=== PATIENT | female | born 1965 | race Hispanic/Latino ===

== ENCOUNTER 2016-12-21 20:42 | Observation (INO) | payer MEDICARE, OTHER ==
[2016-12-21] MEDS ORDERED: Sodium Chloride 0.9% 1,000 ML IV STA (22:05)
--- NOTE | 2016-12-21 22:10 | ED PDOC ---
HPI: Chest Pain Time Seen by Provider: 12/21/16 21:49 Chief Complaint (Nursing): Chest Pain Chief Complaint (Provider): chest pain History Per: Patient History/Exam Limitations: no limitations Onset/Duration Of Symptoms: Days (1) Current Symptoms Are (Timing): Still Present Quality: Pressure, "Pain" Associated Symptoms: Dyspnea Additional History Per: Patient Additional Complaint(s): 51 y/o female presents with intermittent left-sided chest pain x 1 day. Patient notes pain to radiate behind left shoulder, with associated shortness of breath. Symptoms unrelieved with albuterol nebulizer at home. Patient also notes dizziness since last night; states started after an argument with her son. Patient describes dizziness as "room spinning", worse with movement of head. Denies fever, headache, extremity numbness/weakness, vision changes, palpitations, abdominal pain, leg pain/swelling, recent travel. Past Medical History Reviewed: Historical Data, Nursing Documentation, Vital Signs Vital Signs: Last Vital Signs Temp 98.5 F 12/21/16 21:02 Pulse 61 12/21/16 21:02 Resp 16 12/21/16 21:02 BP 131/74 12/21/16 21:02 Pulse Ox 99 12/22/16 04:20 - Medical History PMH: Anxiety, Arthritis, Asthma, Back Problems, Gastritis, HTN, Hypercholesterolemia Denies: Chronic Kidney Disease - Surgical History Surgical History: Back Surgery, Cholecystectomy - Family History Family History: States: Hypertension - Home Medications Home Medications: Ambulatory Orders Medication Instructions Recorded Aripiprazole [Abilify] 20 mg PO DAILY 11/14/14 Gabapentin [Gabapentin] 300 mg PO TID 11/14/14 LORazepam [Ativan] 0.5 mg PO BID 11/14/14 Losartan/Hydrochlorothiazide 12.5 mg PO DAILY 11/14/14 [Losartan Potassium-Hydrochlorothiazide 12.5 M] Omeprazole [Omeprazole] 40 mg PO DAILY 11/14/14 Sertraline Hydrochloride 100 mg PO BID 11/14/14 [Sertraline Hydrochloride] Ondansetron ODT [Zofran ODT] 8 mg PO Q6 PRN #10 odt 11/15/14 Azithromycin [Zithromax Z-Shukri] 250 mg PO DAILY #1 tab 05/22/15 Prednisone 3 tab-cap PO QAM #15 tab 05/22/15 Promethazine/Phenyleph/Codeine 2 tsp PO Q6 PRN #0 syr 05/22/15 [Promethazine Vc W/ Codeine 120 ml] Albuterol 0.083% [Albuterol 0.083% 2.5 mg IH Q8 #10 neb 07/08/15 Inhal Peggy (2.5 mg/3 ml) UD] Azithromycin [Zithromax] 250 mg PO DAILY #6 cap 07/08/15 Codeine Phos/Phenyleph HCl/P 5 ml PO Q6H #100 syr 07/08/15 [Phenergan Vc W/Codeine 120 ml] Amoxicillin/Clavulanate [Augmentin 1 tab PO BID #14 tab 02/25/16 875 MG-125 MG] traMADol [Ultram] 50 mg PO Q6 #16 tab 02/25/16 Ciprofloxacin [Cipro] 500 mg PO BID #20 tab 05/21/16 metroNIDAZOLE [Flagyl] 500 mg PO Q8 #30 tab 05/21/16 Polymyxin/Trimethoprim Sulfate 1 drop XX Q6H 10 Days 10/10/16 [Polytrim Ophth Soln] Benzonatate [Tessalon Perle] 100 mg PO BID #15 capsule 10/25/16 Ibuprofen [Motrin Tab] 600 mg PO Q6 #30 tab 10/25/16 predniSONE [predniSONE Tab] 60 mg PO DAILY #9 tab 10/25/16 - Allergies Allergies/Adverse Reactions: Allergies Allergy/AdvReac Type Severity Reaction Status Date / Time latex Allergy RASH Verified 12/21/16 21:02 REEMA Risk Score for UA/NSTEMI - REEMA Risk Score Age > 64: NO 3 or more CAD Risk Factors: NO Known CAD (Stenosis greater than 50%): NO Aspirin use in past 7 days: NO Severe Angina: NO EKG ST changes greater than 0.5mm: NO Positive Cardiac Marker: NO REEMA Score: 0 Risk %: 5% Wells Criteria for PE - Wells Criteria for Pulmonary Embolism Clinical Signs and Symptoms of DVT: No P.E is #1 Diagnosis, or Equally Likely: No Heart Rate >100: No Immobilization at least 3 days;Surgery previous 4 weeks: No Previous, objectively diagnosed PE or DVT: No Hemoptysis: No Malignancy w/treatment within 6 months, or palliative: No Total Score: 0 Review of Systems ROS Statement: Except As Marked, All Systems Reviewed And Found Negative Cardiovascular: Positive for: Chest Pain Respiratory: Positive for: Shortness of Breath Neurological: Positive for: Dizziness Physical Exam - Reviewed Nursing Documentation Reviewed: Yes Vital Signs Reviewed: Yes - Physical Exam Appears: Positive for: Well, Non-toxic, No Acute Distress Head Exam: Positive for: ATRAUMATIC, NORMAL INSPECTION, NORMOCEPHALIC Skin: Positive for: Normal Color Eye Exam: Positive for: Normal appearance, EOMI, PERRL, Nystagmus ENT: Positive for: Normal ENT Inspection Cardiovascular/Chest: Positive for: Regular Rate, Rhythm Respiratory: Positive for: Normal Breath Sounds Gastrointestinal/Abdominal: Positive for: Normal Exam Back: Positive for: Normal Inspection Extremity: Positive for: Normal ROM Neurologic/Psych: Positive for: Alert, Oriented. Negative for: Motor/Sensory Deficits - Laboratory Results Result Diagrams: 12/21/16 01:04 12/21/16 01:04 - ECG ECG: Positive for: Viewed By Me (reviewed by ED attending) ECG Rhythm: Positive for: Sinus Bradycardia (59bpm) O2 Sat by Pulse Oximetry: 99 - Progress ED Course And Treament: EXAM: CT Head Without Intravenous Contrast. CLINICAL HISTORY: 51 years old, female; Signs and symptoms; Dizziness TECHNIQUE: Axial computed tomography images of the head/brain without intravenous contrast. This CT exam was performed using one or more of the following dose reduction techniques: automated exposure control, adjustment of the mA and/or kV according to patient size, and/or use of iterative reconstruction technique. Coronal and sagittal reformatted images were created and reviewed. COMPARISON: CT - HEAD W/O CONTRAST 02/25/2016 12:39:55 AM FINDINGS: Brain: No intracranial hemorrhage. No mass. No definite edema. Ventricles: No hydrocephalus. Bones/joints: No acute fracture. Soft tissues: Unremarkable. Sinuses: No acute sinusitis. Mastoid air cells: No mastoid effusion. Orbits: Unremarkable as visualized. IMPRESSION: 1. No acute intracranial abnormality. 2. Incidental/non-acute findings are described above. EXAM: XR Chest, 2 Views. CLINICAL HISTORY: 51 years old, female; Pain; Chest pain TECHNIQUE: Frontal and lateral views of the chest. COMPARISON: CR - CHEST PORTABLE 02/24/2016 11:30:18 PM FINDINGS: Lungs: No consolidation. Questionable nodule vs confluence RIGHT lung base. Pleural space: No pleural effusion. No pneumothorax. Heart: No cardiomegaly. Mediastinum: Unremarkable. Bones/joints: No acute fracture. IMPRESSION: 1. Questionable pulmonary nodule. Recommend CT. 2. Incidental/non-acute findings are described above. Case discussed with ED attending Dr. Perez; will place in tele observation for CP r/out ACS. Case discussed with Kt Zhao APARTMENT COORDINATOR for admission. Disposition - Clinical Impression Clinical Impression: Chest pain - Patient ED Disposition Is Patient to be Admitted: Yes - Disposition Disposition Time: 04:20 Condition: FAIR - Pt Status Changed To: Hospital Disposition Of: Observation
--- NOTE | 2016-12-21 22:44 | CT ---
EXAM: CT Head Without Intravenous Contrast. CLINICAL HISTORY: 51 years old, female; Signs and symptoms; Dizziness TECHNIQUE: Axial computed tomography images of the head/brain without intravenous contrast. This CT exam was performed using one or more of the following dose reduction techniques: automated exposure control, adjustment of the mA and/or kV according to patient size, and/or use of iterative reconstruction technique. Coronal and sagittal reformatted images were created and reviewed. COMPARISON: CT - HEAD W/O CONTRAST 02/25/2016 12:39:55 AM FINDINGS: Brain: No intracranial hemorrhage. No mass. No definite edema. Ventricles: No hydrocephalus. Bones/joints: No acute fracture. Soft tissues: Unremarkable. Sinuses: No acute sinusitis. Mastoid air cells: No mastoid effusion. Orbits: Unremarkable as visualized. IMPRESSION: 1. No acute intracranial abnormality. 2. Incidental/non-acute findings are described above.
[2016-12-22 01:10] LABS: BASO % 0.6 % (0.0-2.0); EOS # 0.1 K/uL (0.0-0.7); EOS % 1.7 % (0.0-4.0); HEMATOCRIT 41.8 % (34.0-47.0); LYMPH # 2.6 K/uL (1.0-4.3); LYMPH % 39.3 % (20.0-40.0); MEAN CORPUSCULAR HEMOGLOBIN 30.9 pg (27.0-31.0); MEAN CORPUSCULAR HGB CONC 32.9 g/dL (33.0-37.0); MEAN PLATELET VOLUME 7.4 fl (7.2-11.7); MONO # 0.4 K/uL (0.0-0.8); NEUT # 3.4 K/uL (1.8-7.0); NEUT % 52.4 % (50.0-75.0); WHITE BLOOD COUNT 6.6 K/uL (4.8-10.8)
[2016-12-22 01:17] LABS: ALB/GLOB RATIO 1.1 (1.0-2.1); ALKALINE PHOSPHATASE 95 U/L (38-126); ALT/SGPT 32 U/L (9-52); AST/SGOT 39 U/L (14-36); BILIRUBIN,TOTAL 0.7 mg/dl (0.2-1.3); BLOOD UREA NITROGEN 10 mg/dl (7-17); CALCIUM 9.7 mg/dL (8.4-10.2); CARBON DIOXIDE 27 mmol/L (22-30); CHLORIDE 102 mmol/L (98-107); GFR AFRICAN-AMERICAN > 60; GLUCOSE,RANDOM 114 mg/dL (65-105); POTASSIUM 3.8 MMOL/L (3.6-5.0); SODIUM 143 mmol/l (132-148); TOTAL PROTEIN 8.2 G/DL (6.3-8.2)
--- NOTE | 2016-12-22 02:00 | RAD ---
EXAM: XR Chest, 2 Views. CLINICAL HISTORY: 51 years old, female; Pain; Chest pain TECHNIQUE: Frontal and lateral views of the chest. COMPARISON: CR - CHEST PORTABLE 02/24/2016 11:30:18 PM FINDINGS: Lungs: No consolidation. Questionable nodule vs confluence RIGHT lung base. Pleural space: No pleural effusion. No pneumothorax. Heart: No cardiomegaly. Mediastinum: Unremarkable. Bones/joints: No acute fracture. IMPRESSION: 1. Questionable pulmonary nodule. Recommend CT. 2. Incidental/non-acute findings are described above.
--- NOTE | 2016-12-22 07:07 | CP.PCM.HP ---
History of Present Illness - History of Present Illness History of Present Illness: pt presents for 3 days of cp, at present is pain free. no cp, dyspnea palpitations. pt has h/o htn. no dm2. 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 bw nad imaging noted. cardio consult pending. ekg reviewed. Present on Admission - Present on Admission Any Indicators Present on Admission: No Review of Systems - Cardiovascular Cardiovascular: As Per HPI, Chest Pain Past Patient History - Past Social History Smoking Status: Never Smoked - CARDIAC Hx Hypercholesterolemia: Yes Hx Hypertension: Yes - PULMONARY Hx Asthma: Yes - NEUROLOGICAL Hx Neurological Disorder: No - HEENT Hx HEENT Problems: No - RENAL Hx Chronic Kidney Disease: No - ENDOCRINE/METABOLIC Hx Endocrine Disorders: No - HEMATOLOGICAL/ONCOLOGICAL Hx Blood Disorders: No - INTEGUMENTARY Hx Dermatological Problems: No - MUSCULOSKELETAL/RHEUMATOLOGICAL Hx Arthritis: Yes - GASTROINTESTINAL Hx Gastritis: Yes - GENITOURINARY/GYNECOLOGICAL Hx Genitourinary Disorders: No - PSYCHIATRIC Hx Anxiety: Yes Hx Substance Use: No - SURGICAL HISTORY Hx Cholecystectomy: Yes - ANESTHESIA Hx Anesthesia: Yes Meds Home Medications: Home Medication List Medication Instructions Recorded Confirmed Type Aspirin [Aspirin Chewable] 81 mg PO DAILY #30 chew 12/22/16 Rx Allergies/Adverse Reactions: Allergies Allergy/AdvReac Type Severity Reaction Status Date / Time latex Allergy RASH Verified 12/21/16 21:02 Physical Exam - Constitutional Appears: Well, Non-toxic, No Acute Distress - Head Exam Head Exam: ATRAUMATIC, NORMAL INSPECTION, NORMOCEPHALIC - Eye Exam Eye Exam: EOMI, Normal appearance, PERRL Pupil Exam: NORMAL ACCOMODATION, PERRL - ENT Exam ENT Exam: Mucous Membranes Moist, Normal Exam - Neck Exam Neck exam: Positive for: Normal Inspection - Respiratory Exam Respiratory Exam: Clear to Auscultation Bilateral, NORMAL BREATHING PATTERN - Cardiovascular Exam Cardiovascular Exam: REGULAR RHYTHM, RRR, +S1, +S2 - GI/Abdominal Exam GI & Abdominal Exam: Normal Bowel Sounds, Soft. absent: Tenderness - Extremities Exam Extremities exam: Positive for: full ROM, normal capillary refill, normal inspection, pedal pulses present - Back Exam Back exam: NORMAL INSPECTION - Neurological Exam Neurological exam: Alert, CN II-XII Intact, Normal Gait, Oriented x3, Reflexes Normal - Psychiatric Exam Psychiatric exam: Normal Affect, Normal Mood - Skin Skin Exam: Dry, Intact, Normal Color, Warm Results - Vital Signs Recent Vital Signs: Last Vital Signs Temp 98.5 F 12/21/16 21:02 Pulse 61 12/21/16 21:02 Resp 16 12/21/16 21:02 BP 131/74 12/21/16 21:02 Pulse Ox 99 12/22/16 06:02 - Labs Result Diagrams: 12/22/16 07:00 12/22/16 08:21 Assessment & Plan (1) Chest pain Assessment and Plan: [facility] cardio asa cleared bybarbie waldrop as of 929 Status: Acute (2) DVT prophylaxis Assessment and Plan: cd and ae hose lovenox if admitted over 24h Status: Acute Decision To Admit - Pt Status Changed To: Hospital Disposition Of: Observation - . Bed Request Type: Telemetry Admitting Physician: Cait Benitez
[2016-12-22 08:44] LABS: BASO % 0.5 % (0.0-2.0); EOS # 0.1 K/uL (0.0-0.7); EOS % 1.9 % (0.0-4.0); HEMATOCRIT 39.8 % (34.0-47.0); LYMPH # 2.2 K/uL (1.0-4.3); LYMPH % 38.2 % (20.0-40.0); MEAN CELL VOLUME 93.8 fl (81.0-99.0); MEAN CORPUSCULAR HEMOGLOBIN 30.9 pg (27.0-31.0); MEAN CORPUSCULAR HGB CONC 32.9 g/dL (33.0-37.0); MEAN PLATELET VOLUME 7.4 fl (7.2-11.7); MONO # 0.4 K/uL (0.0-0.8); MONO % 6.6 % (0.0-10.0); NEUT % 52.8 % (50.0-75.0); RED CELL DISTRIBUTION WIDTH 13.8 % (11.5-14.5); WHITE BLOOD COUNT 5.7 K/uL (4.8-10.8)
--- NOTE | 2016-12-22 08:47 | CP.PCM.CON ---
History of Present Illness - History of Present Illness History of Present Illness: 51 y/o female presents with intermittent left-sided chest pain x 1 day. Patient notes pain to radiate behind left shoulder, with associated shortness of breath. Symptoms unrelieved with albuterol nebulizer at home. The patient has had this pain and shortness of breath for 3 weeks. The pain comes it is constant and not made worse or better with exercise or movement Claims pain comes on more when she is upset. EKG: NSR Troponin: neg Past Patient History - Past Social History Smoking Status: Never Smoked - CARDIAC Hx Hypercholesterolemia: Yes Hx Hypertension: Yes - PULMONARY Hx Asthma: Yes - NEUROLOGICAL Hx Neurological Disorder: No - HEENT Hx HEENT Problems: No - RENAL Hx Chronic Kidney Disease: No - ENDOCRINE/METABOLIC Hx Endocrine Disorders: No - HEMATOLOGICAL/ONCOLOGICAL Hx Blood Disorders: No - INTEGUMENTARY Hx Dermatological Problems: No - MUSCULOSKELETAL/RHEUMATOLOGICAL Hx Arthritis: Yes - GASTROINTESTINAL Hx Gastritis: Yes - GENITOURINARY/GYNECOLOGICAL Hx Genitourinary Disorders: No - PSYCHIATRIC Hx Anxiety: Yes Hx Substance Use: No - SURGICAL HISTORY Hx Cholecystectomy: Yes - ANESTHESIA Hx Anesthesia: Yes Meds Home Medications: Home Medication List Medication Instructions Recorded Confirmed Type Aspirin [Aspirin Chewable] 81 mg PO DAILY #30 chew 12/22/16 Rx Allergies/Adverse Reactions: Allergies Allergy/AdvReac Type Severity Reaction Status Date / Time latex Allergy RASH Verified 12/21/16 21:02 - Medications Medications: Current Medications Aspirin (Aspirin Chewable) 81 mg PO DAILY JASON Results - Vital Signs Recent Vital Signs: Last Vital Signs Temp 98.5 F 12/21/16 21:02 Pulse 61 12/22/16 07:59 Resp 21 12/22/16 07:59 BP 135/89 12/22/16 07:59 Pulse Ox 98 12/22/16 07:59 - Labs Result Diagrams: 12/22/16 07:00 12/22/16 08:21 Assessment & Plan (1) Chest pain Assessment and Plan: The patient is asymptomatic at this point. The pain that she has of the chest appears to be noncardiac. She may be discharged at any time. Status: Resolved (2) Bronchitis Status: Acute
[2016-12-22 09:19] LABS: ALKALINE PHOSPHATASE 77 U/L (38-126); ALT/SGPT 34 U/L (9-52); AST/SGOT 27 U/L (14-36); BILIRUBIN,TOTAL 0.8 mg/dl (0.2-1.3); BLOOD UREA NITROGEN 9 mg/dl (7-17); CALCIUM 9.1 mg/dL (8.4-10.2); CARBON DIOXIDE 22 mmol/L (22-30); CHLORIDE 109 mmol/L (98-107); GFR AFRICAN-AMERICAN > 60; GLUCOSE,RANDOM 91 mg/dL (65-105); POTASSIUM 3.9 MMOL/L (3.6-5.0); SODIUM 144 mmol/l (132-148); TOTAL PROTEIN 7.2 G/DL (6.3-8.2)
--- NOTE | 2016-12-22 10:20 | CP.PCM.DIS ---
Provider - Provider Date of Admission: 12/22/16 04:15 Attending physician: Cait Benitez MD Time Spent in preparation of Discharge (in minutes): 15 Hospital Course - Lab Results Lab Results: Most Recent Lab Values WBC 5.7 K/uL (4.8-10.8) 12/22/16 07:00 RBC 4.25 Mil/uL (3.80-5.20) 12/22/16 07:00 Hgb 13.1 g/dL (12.0-16.0) 12/22/16 07:00 Hct 39.8 % (34.0-47.0) 12/22/16 07:00 MCV 93.8 fl (81.0-99.0) 12/22/16 07:00 MCH 30.9 pg (27.0-31.0) 12/22/16 07:00 MCHC 32.9 g/dL (33.0-37.0) L 12/22/16 07:00 RDW 13.8 % (11.5-14.5) 12/22/16 07:00 Plt Count 232 K/uL (130-400) 12/22/16 07:00 MPV 7.4 fl (7.2-11.7) 12/22/16 07:00 Neut % (Auto) 52.8 % (50.0-75.0) 12/22/16 07:00 Lymph % (Auto) 38.2 % (20.0-40.0) 12/22/16 07:00 [place] % (Auto) 6.6 % (0.0-10.0) 12/22/16 07:00 Eos % (Auto) 1.9 % (0.0-4.0) 12/22/16 07:00 Baso % (Auto) 0.5 % (0.0-2.0) 12/22/16 07:00 Neut # 3.0 K/uL (1.8-7.0) 12/22/16 07:00 Lymph # 2.2 K/uL (1.0-4.3) 12/22/16 07:00 [place] # 0.4 K/uL (0.0-0.8) 12/22/16 07:00 Eos # 0.1 K/uL (0.0-0.7) 12/22/16 07:00 Baso # 0.0 K/uL (0.0-0.2) 12/22/16 07:00 Sodium 144 mmol/l (132-148) 12/22/16 08:21 Potassium 3.9 MMOL/L (3.6-5.0) 12/22/16 08:21 Chloride 109 mmol/L (98-107) H 12/22/16 08:21 Carbon Dioxide 22 mmol/L (22-30) 12/22/16 08:21 Anion Gap 17 (10-20) 12/22/16 08:21 BUN 9 mg/dl (7-17) 12/22/16 08:21 Creatinine 0.5 mg/dL (0.7-1.2) L 12/22/16 08:21 Est GFR ( Amer) > 60 12/22/16 08:21 Est GFR (Non-Af Amer) > 60 12/22/16 08:21 Random Glucose 91 mg/dL (65-105) 12/22/16 08:21 Calcium 9.1 mg/dL (8.4-10.2) 12/22/16 08:21 Total Bilirubin 0.8 mg/dl (0.2-1.3) 12/22/16 08:21 AST 27 U/L (14-36) 12/22/16 08:21 ALT 34 U/L (9-52) 12/22/16 08:21 Alkaline Phosphatase 77 U/L (38-126) 12/22/16 08:21 Troponin I < 0.0120 ng/mL (0.00-0.120) 12/22/16 09:13 Total Protein 7.2 G/DL (6.3-8.2) 12/22/16 08:21 Albumin 3.7 g/dL (3.5-5.0) 12/22/16 08:21 Globulin 3.5 gm/dL (2.2-3.9) 12/22/16 08:21 Albumin/Globulin Ratio 1.0 (1.0-2.1) 12/22/16 08:21 Discharge Exam - Head Exam Head Exam: ATRAUMATIC, NORMAL INSPECTION, NORMOCEPHALIC Discharge Plan - Discharge Medications Prescriptions: Aspirin [Aspirin Chewable] 81 mg PO DAILY #30 chew - Follow Up Plan Condition: FAIR Disposition: HOME/ ROUTINE Additional Instructions: per rn cleared by cardio pt in no pain/distress/dyspnea. trops negative f/u pmd 1-2 days, rted prn, meds er med rec, asa daily final dx-cp
[2016-12-22 10:53] VITALS: BP 139/66; PULSE 68; RESP 18; TEMP 98.4; O2SAT 97
== END 2016-12-22 11:04 | disposition home or self-care (01) ==
LOC: H.ER 20:42 → H.ERHOLD 12-22 04:15
PROVIDERS: ADMIT Family Medicine; ATTEND Family Medicine
DX: R07.9 Chest pain, unspecified (principal); E78.00 Pure hypercholesterolemia, unspecified; I10 Essential (primary) hypertension; K29.70 Gastritis, unspecified, without bleeding; J45.909 Unspecified asthma, uncomplicated; M19.90 Unspecified osteoarthritis, unspecified site; F41.9 Anxiety disorder, unspecified; Z91.040 Latex allergy status
CPT/HCPCS: 36415; 70450; 71020; 80053; 81025; 84484; 85025; 96360; 99282; G0378; J7040

== ENCOUNTER 2017-01-10 13:42 | Emergency (ER) | payer MEDICARE, OTHER ==
[2017-01-10 13:47] VITALS: TEMP 96.9
[2017-01-10] MEDS ORDERED: Sodium Chloride 0.9% 1,000 ML IV STA (15:05)
[2017-01-10 15:25] LABS: BASO % 0.2 % (0.0-2.0); EOS % 0.2 % (0.0-4.0); HEMATOCRIT 47.4 % (34.0-47.0); LYMPH # 0.9 K/uL (1.0-4.3); LYMPH % 6.7 % (20.0-40.0); MEAN CELL VOLUME 93.5 fl (81.0-99.0); MEAN CORPUSCULAR HEMOGLOBIN 30.8 pg (27.0-31.0); MEAN PLATELET VOLUME 7.4 fl (7.2-11.7); MONO # 0.7 K/uL (0.0-0.8); MONO % 4.8 % (0.0-10.0); NEUT # 12.2 K/uL (1.8-7.0); NEUT % 88.1 % (50.0-75.0); PLATELET COUNT 303 K/uL (130-400); RED CELL DISTRIBUTION WIDTH 13.2 % (11.5-14.5); WHITE BLOOD COUNT 13.8 K/uL (4.8-10.8)
[2017-01-10 15:35] LABS: ALKALINE PHOSPHATASE 131 U/L (38-126); ALT/SGPT 35 U/L (9-52); AST/SGOT 35 U/L (14-36); BILIRUBIN,TOTAL 0.7 mg/dl (0.2-1.3); BLOOD UREA NITROGEN 12 mg/dl (7-17); CALCIUM 10.4 mg/dL (8.4-10.2); CARBON DIOXIDE 21 mmol/L (22-30); CHLORIDE 106 mmol/L (98-107); GFR AFRICAN-AMERICAN > 60; GLUCOSE,RANDOM 120 mg/dL (65-105); LIPASE 147 U/L (23-300); POTASSIUM 3.6 MMOL/L (3.6-5.0); SODIUM 147 mmol/l (132-148); TOTAL PROTEIN 9.3 G/DL (6.3-8.2)
[2017-01-10 15:47] LABS: NEUTROPHIL 80 % (42-75); TOTAL CELLS COUNTED 100
--- NOTE | 2017-01-10 16:16 | ED PDOC ---
HPI: General Adult Time Seen by Provider: 01/10/17 14:26 Chief Complaint (Nursing): Abdominal Pain Chief Complaint (Provider): Abdominal Pain History Per: Patient, Family Additional Complaint(s): Pt. states earlier this afternoon she developed epigastric pain and developed nausea and felt very weak. As per family pt. looked pale and while waiting in ED room she developed multiple episodes of non-bloody watery diarrhea. Denies chest pain, SOB, fever, sick contacts, recent travel, vomiting, hematemesis, melena, hematochezia, BRBPR. Past Medical History Reviewed: Historical Data, Nursing Documentation, Vital Signs Vital Signs: Last Vital Signs Temp 96.9 F L 01/10/17 13:44 Pulse 77 01/10/17 17:22 Resp 18 01/10/17 13:44 BP 115/78 01/10/17 13:44 Pulse Ox 99 01/10/17 17:22 - Medical History PMH: Anxiety, Arthritis, Asthma, Back Problems, Gastritis, HTN, Hypercholesterolemia Denies: Chronic Kidney Disease - Surgical History Surgical History: Back Surgery, Cholecystectomy - Family History Family History: States: No Known Family Hx, Hypertension - Home Medications Home Medications: Ambulatory Orders Medication Instructions Recorded Aripiprazole [Abilify] 20 mg PO DAILY 11/14/14 Gabapentin 300 mg PO TID 11/14/14 LORazepam [Ativan] 0.5 mg PO BID 11/14/14 Losartan/Hydrochlorothiazide 12.5 mg PO DAILY 11/14/14 [Losartan-Hctz 50-12.5 mg Tab] Omeprazole 40 mg PO DAILY 11/14/14 Sertraline Hydrochloride 100 mg PO BID 11/14/14 Ondansetron ODT [Zofran ODT] 8 mg PO Q6 PRN #10 odt 11/15/14 Azithromycin [Zithromax] 250 mg PO DAILY #1 tab 05/22/15 Prednisone 3 tab-cap PO QAM #15 tab 05/22/15 Promethazine/Phenyleph/Codeine 2 tsp PO Q6 PRN #0 syr 05/22/15 [Promethazine Vc-Codeine Syrup] Albuterol 0.083% [Albuterol 0.083% 2.5 mg IH Q8 #10 neb 07/08/15 Inhal Peggy (2.5 mg/3 ml) UD] Azithromycin [Zithromax] 250 mg PO DAILY #6 cap 07/08/15 Codeine Phos/Phenyleph HCl/P 5 ml PO Q6H #100 syr 07/08/15 [Phenergan Vc W/Codeine 120 ml] Amoxicillin/Clavulanate [Augmentin 1 tab PO BID #14 tab 02/25/16 875 MG-125 MG Tab] traMADol [Ultram] 50 mg PO Q6 #16 tab 02/25/16 Ciprofloxacin [Cipro] 500 mg PO BID #20 tab 05/21/16 metroNIDAZOLE [Flagyl] 500 mg PO Q8 #30 tab 05/21/16 Polymyxin/Trimethoprim Sulfate 1 drop XX Q6H 10 Days 10/10/16 [Polytrim Ophth Soln] Benzonatate [Tessalon Perle] 100 mg PO BID #15 capsule 10/25/16 Ibuprofen [Motrin Tab] 600 mg PO Q6 #30 tab 10/25/16 predniSONE [predniSONE Tab] 60 mg PO DAILY #9 tab 10/25/16 Aspirin [Aspirin Chewable] 81 mg PO DAILY #30 chew 12/22/16 Dicyclomine [Bentyl] 20 mg PO Q8 PRN #30 tab 01/10/17 Famotidine [Pepcid] 20 mg PO DAILY PRN #30 tab 01/10/17 Ondansetron ODT [Zofran ODT] 4 mg PO TID #21 odt 01/10/17 - Allergies Allergies/Adverse Reactions: Allergies Allergy/AdvReac Type Severity Reaction Status Date / Time latex Allergy RASH Verified 12/21/16 21:02 Review of Systems ROS Statement: Except As Marked, All Systems Reviewed And Found Negative Gastrointestinal: Positive for: Nausea, Abdominal Pain, Diarrhea Physical Exam - Reviewed Nursing Documentation Reviewed: Yes Vital Signs Reviewed: Yes - Physical Exam Appears: Positive for: Well, Non-toxic, No Acute Distress Head Exam: Positive for: ATRAUMATIC, NORMAL INSPECTION, NORMOCEPHALIC Skin: Positive for: Normal Color, Warm. Negative for: Rash Eye Exam: Positive for: EOMI, Normal appearance, PERRL ENT: Positive for: Normal ENT Inspection Neck: Positive for: Normal, Painless ROM Cardiovascular/Chest: Positive for: Regular Rate, Rhythm Respiratory: Positive for: CNT, Normal Breath Sounds Gastrointestinal/Abdominal: Positive for: Normal Exam, Bowel Sounds, Soft. Negative for: Tenderness (to deep palpation) Back: Positive for: Normal Inspection. Negative for: L CVA Tenderness, R CVA Tenderness Extremity: Positive for: Normal ROM Neurologic/Psych: Positive for: Alert, Oriented. Negative for: Aphasia, Facial Droop - Laboratory Results Result Diagrams: 01/10/17 15:21 01/10/17 15:21 - ECG ECG: Positive for: Interpreted By Me ECG Rhythm: Positive for: Sinus Rhythm. Negative for: ST/T Changes Rate: 77 O2 Sat by Pulse Oximetry: 99 - Progress Re-evaluation Time: 18:21 (Abd soft and non-tender. ) Condition: Re-examined, Improved Disposition - Clinical Impression Clinical Impression: Gastroenteritis - Patient ED Disposition Is Patient to be Admitted: No - Disposition Disposition: Routine/Home Disposition Time: 18:22 Condition: IMPROVED Additional Instructions: Follow up with your physician in 2 days without fail. Return to ED immediately if symptoms worsen. Prescriptions: Dicyclomine [Bentyl] 20 mg PO Q8 PRN #30 tab PRN Reason: abdominal pain Famotidine [Pepcid] 20 mg PO DAILY PRN #30 tab PRN Reason: Dyspepsia Ondansetron ODT [Zofran ODT] 4 mg PO TID #21 odt Instructions: Gastroenteritis (ED) Print Language: NICARAGUAN
[2017-01-10 18:54] VITALS: BP 122/72; PULSE 70; RESP 16; O2SAT 98
--- NOTE | 2017-01-12 11:48 | CARD ---
APPROVED REPORT EKG Measurement Heart [id number] ID [id number] <Conclusion> Normal sinus rhythm Normal ECG
== END 2017-01-10 18:55 | disposition home or self-care (01) ==
LOC: H.ER 13:42
DX: K52.9 Noninfective gastroenteritis and colitis, unspecified (principal); R10.13 Epigastric pain; E78.00 Pure hypercholesterolemia, unspecified; F41.9 Anxiety disorder, unspecified; I10 Essential (primary) hypertension; Z79.82 Long term (current) use of aspirin; J45.909 Unspecified asthma, uncomplicated; R11.0 Nausea
CPT/HCPCS: 80053; 83690; 85025; 87045; 87230; 93005; 96361; 96374; 96375; 99283; J2405; J7040

== ENCOUNTER 2018-01-31 08:29 | Emergency (ER) | payer MEDICARE, MEDICAID ==
[2018-01-31 08:40] VITALS: TEMP 97.9
[2018-01-31] MEDS ORDERED: Morphine 4 MG/ML VIAL IV STA (09:22)
[2018-01-31] MEDS ORDERED: Sodium Chloride 0.9% 1,000 ML IV STA (09:23)
[2018-01-31] MEDS ORDERED: Morphine 4 MG/ML VIAL ONE (09:39)
[2018-01-31 09:42] LABS: BASO % 0.5 % (0.0-2.0); EOS % 0.4 % (0.0-4.0); HEMOGLOBIN 14.6 g/dL (12.0-16.0); LYMPH # 1.6 K/uL (1.0-4.3); LYMPH % 20.2 % (20.0-40.0); MEAN CELL VOLUME 93.4 fl (81.0-99.0); MEAN CORPUSCULAR HEMOGLOBIN 32.2 pg (27.0-31.0); MEAN CORPUSCULAR HGB CONC 34.5 g/dL (33.0-37.0); MEAN PLATELET VOLUME 6.9 fl (7.2-11.7); MONO # 0.4 K/uL (0.0-0.8); MONO % 5.7 % (0.0-10.0); NEUT # 5.7 K/uL (1.8-7.0); NEUT % 73.2 % (50.0-75.0); NRBC % 0.1 % (0.0-0.0); RBC 4.54 Mil/uL (3.80-5.20); RED CELL DISTRIBUTION WIDTH 12.6 % (11.5-14.5); WHITE BLOOD COUNT 7.8 K/uL (4.8-10.8)
[2018-01-31 09:58] LABS: ALB/GLOB RATIO 1.1 (1.0-2.1); ALBUMIN 4.3 g/dL (3.5-5.0); ALT/SGPT 36 U/L (9-52); AST/SGOT 30 U/L (14-36); BLOOD UREA NITROGEN 8 mg/dl (7-17); CALCIUM 9.2 mg/dL (8.4-10.2); GFR AFRICAN-AMERICAN > 60; GFR NON-AFRICAN AMERICAN > 60; LIPASE 128 U/L (23-300)
[2018-01-31 09:59] LABS: INR 0.9 (0.9-1.2); PARTIAL THROMBOPLASTIN TIME 33.2 Seconds (25.6-37.1)
[2018-01-31 10:12] LABS: SQUAMOUS EPITHIAL < 1 /hpf (0-5); URINE BILIRUBIN NEGATIVE (NEGATIVE); URINE BLOOD SMALL (NEGATIVE); URINE CLARITY CLEAR (Clear); URINE COLOR COLORLESS (YELLOW); URINE GLUCOSE (UA) NEG (Normal); URINE LEUKOCYTE ESTERASE NEG Leu/uL (Negative); URINE PROTEIN NEGATIVE (NEGATIVE); URINE UROBILINOGEN 0.2-1.0 mg/dL (0.2-1.0)
--- NOTE | 2018-01-31 10:15 | RAD ---
HISTORY: Epigastric pain COMPARISON: Chest radiographs 12/21/2016 TECHNIQUE: Chest PA and lateral FINDINGS: LUNGS: No active pulmonary disease. PLEURA: No significant pleural effusion identified. No pneumothorax apparent. CARDIOVASCULAR: Normal. OSSEOUS STRUCTURES: No significant abnormalities. VISUALIZED UPPER ABDOMEN: Surgical clips identified in the right upper quadrant abdomen suggesting prior cholecystectomy. Clinically correlate. OTHER FINDINGS: None. IMPRESSION: No interval acute cardiopulmonary disease appreciated.
--- NOTE | 2018-01-31 10:27 | ED PDOC ---
HPI: Abdomen Time Seen by Provider: 01/31/18 09:08 Chief Complaint (Nursing): Abdominal Pain Chief Complaint (Provider): abdominal pain History Per: Patient, Family (daughter) History/Exam Limitations: no limitations Onset/Duration Of Symptoms: Hrs (02:00 today) Current Symptoms Are (Timing): Still Present Location Of Pain/Discomfort: Epigastric Quality Of Discomfort: "Pain" Associated Symptoms: Nausea, Diarrhea. denies: Fever, Chills, Vomiting Additional Complaint(s): Leann Lorenzana is a 52 year old female, with a past medical history of hiatal hernia, gastritis, HTN and asthma, who presents to the emergency department complaining of abdominal pain associated with nausea and multiple episodes of diarrhea onset since 02:00 today. Patient states she was diagnosed with a hernia but is unsure if it's the cause of the abdominal pain. Patient denies any fever, chills, vomiting or other medical complaints. PMD: None provided. Past Medical History Reviewed: Historical Data, Nursing Documentation, Vital Signs Vital Signs: Last Vital Signs Temp 97.9 F 01/31/18 08:39 Pulse 64 01/31/18 08:39 Resp 20 01/31/18 08:39 BP 137/83 01/31/18 08:39 Pulse Ox 98 01/31/18 13:35 - Medical History PMH: Anxiety, Arthritis, Asthma, Back Problems, Gastritis, Hiatal Hernia, HTN, Hypercholesterolemia Denies: Chronic Kidney Disease - Surgical History Surgical History: Back Surgery, Cholecystectomy, - Family History Family History: States: Hypertension - Social History Current smoker - smoking cessation education provided: No Alcohol: None Drugs: Denies - Home Medications Home Medications: Ambulatory Orders Medication Instructions Recorded Aripiprazole [Abilify] 20 mg PO DAILY 11/14/14 Gabapentin 300 mg PO TID 11/14/14 LORazepam [Ativan] 0.5 mg PO BID 11/14/14 Losartan/Hydrochlorothiazide 12.5 mg PO DAILY 11/14/14 [Losartan-Hctz 50-12.5 mg Tab] Omeprazole 40 mg PO DAILY 11/14/14 Sertraline Hydrochloride 100 mg PO BID 11/14/14 Ondansetron ODT [Zofran ODT] 8 mg PO Q6 PRN #10 odt 11/15/14 Azithromycin [Zithromax] 250 mg PO DAILY #1 tab 05/22/15 Prednisone 3 tab-cap PO QAM #15 tab 05/22/15 Promethazine/Phenyleph/Codeine 2 tsp PO Q6 PRN #0 syr 05/22/15 [Promethazine Vc-Codeine Syrup] Albuterol 0.083% [Albuterol 0.083% 2.5 mg IH Q8 #10 neb 07/08/15 Inhal Peggy (2.5 mg/3 ml) UD] Azithromycin [Zithromax] 250 mg PO DAILY #6 cap 07/08/15 Codeine Phos/Phenyleph HCl/P 5 ml PO Q6H #100 syr 07/08/15 [Phenergan Vc W/Codeine 120 ml] Amoxicillin/Clavulanate [Augmentin 1 tab PO BID #14 tab 02/25/16 875 MG-125 MG Tab] traMADol [Ultram] 50 mg PO Q6 #16 tab 02/25/16 Ciprofloxacin [Cipro] 500 mg PO BID #20 tab 05/21/16 metroNIDAZOLE [Flagyl] 500 mg PO Q8 #30 tab 05/21/16 Polymyxin/Trimethoprim Sulfate 1 drop XX Q6H 10 Days bottle 10/10/16 [Polytrim Ophth Soln] Benzonatate [Tessalon Perle] 100 mg PO BID #15 capsule 10/25/16 Ibuprofen [Motrin Tab] 600 mg PO Q6 #30 tab 10/25/16 predniSONE [predniSONE Tab] 60 mg PO DAILY #9 tab 10/25/16 Aspirin [Aspirin Chewable] 81 mg PO DAILY #30 chew 12/22/16 Dicyclomine [Bentyl] 20 mg PO Q8 PRN #30 tab 01/10/17 Famotidine [Pepcid] 20 mg PO DAILY PRN #30 tab 01/10/17 Ondansetron ODT [Zofran ODT] 4 mg PO TID #21 odt 01/10/17 Famotidine [Pepcid] 20 mg PO BID #20 tab 01/31/18 Ondansetron ODT [Zofran ODT] 4 mg PO Q8H PRN #20 odt 01/31/18 - Allergies Allergies/Adverse Reactions: Allergies Allergy/AdvReac Type Severity Reaction Status Date / Time latex Allergy RASH Verified 03/28/17 21:02 Review of Systems ROS Statement: Except As Marked, All Systems Reviewed And Found Negative Constitutional: Negative for: Fever, Chills Gastrointestinal: Positive for: Nausea, Abdominal Pain, Diarrhea. Negative for : Vomiting Physical Exam - Reviewed Nursing Documentation Reviewed: Yes Vital Signs Reviewed: Yes - Physical Exam Appears: Positive for: Non-toxic, No Acute Distress Head Exam: Positive for: ATRAUMATIC, NORMOCEPHALIC Skin: Positive for: Normal Color, Warm, Dry Eye Exam: Positive for: Normal appearance Neck: Positive for: Painless ROM, Supple Cardiovascular/Chest: Positive for: Regular Rate, Rhythm. Negative for: Murmur Respiratory: Positive for: Normal Breath Sounds. Negative for: Respiratory Distress Gastrointestinal/Abdominal: Positive for: Tenderness (epigastric) Back: Positive for: Normal Inspection. Negative for: L CVA Tenderness, R CVA Tenderness, Vertebral Tenderness Extremity: Positive for: Normal ROM (upper and lower extremities). Negative for : Deformity, Swelling Neurologic/Psych: Positive for: Alert, Oriented. Negative for: Motor/Sensory Deficits - Laboratory Results Result Diagrams: 01/31/18 09:31 01/31/18 09:31 - ECG Interpretation Of ECG: NSR @ 60, no ST-T changes. O2 Sat by Pulse Oximetry: 98 (RA) Pulse Ox Interpretation: Normal Medical Decision Making Medical Decision Making: Initial Impression: abdominal pain w/ nausea and diarrhea Initial Plan: --EKG --Urine dipstick --CMP --Lipase --CBC w/ differential --PTT --PT --Chest two views (PA/LAT) [RAD] --Pepcid 20 mg IVP --Reglan 10 mg IVP --Morphine 2 mg IV --Sodium Chloride 1,000 ml IV 125 mls/hr --Abdomen Limited (GB included) [RAD] --Urinalysis --Reevaluation 10:13 CXR FINDINGS: LUNGS: No active pulmonary disease. PLEURA: No significant pleural effusion identified. No pneumothorax apparent. CARDIOVASCULAR: Normal. OSSEOUS STRUCTURES: No significant abnormalities. VISUALIZED UPPER ABDOMEN: Surgical clips identified in the right upper quadrant abdomen suggesting prior cholecystectomy. Clinically correlate. OTHER FINDINGS: None. IMPRESSION: No interval acute cardiopulmonary disease appreciated. 12:15 Abdomen Ultrasound FINDINGS: LIVER: Measures 14.2 cm in length. Patent portal vein. Portal venous flow: Hepatopetal. Unremarkable echogenicity of the liver parenchyma. No mass. No intrahepatic bile duct dilatation. GALLBLADDER: Status post cholecystectomy. No abnormality is seen in the gallbladder fossa. COMMON BILE DUCT: Measures 7.1 mm. No stones. No dilatation. PANCREAS: Unremarkable as visualized. No mass. No ductal dilatation. RIGHT KIDNEY: Measures 4.7 x 11.2 cm in length. Normal echogenicity. No calculus, mass, or hydronephrosis. AORTA: No aneurysmal dilatation. IVC: Unremarkable. OTHER FINDINGS: None . IMPRESSION: No significant or acute findings to account for/ related to the clinical presentation. Scribe Attestation: Documented by Don Montaño, acting as a scribe for Mallika Singh MD Provider Scribe Attestation: All medical record entries made by the Scribe were at my direction and personally dictated by me. I have reviewed the chart and agree that the record accurately reflects my personal performance of the history, physical exam, medical decision making, and the department course for this patient. I have also personally directed, reviewed, and agree with the discharge instructions and disposition. Disposition - Clinical Impression Clinical Impression: Gastritis - Disposition Condition: IMPROVED Prescriptions: Famotidine [Pepcid] 20 mg PO BID #20 tab Ondansetron ODT [Zofran ODT] 4 mg PO Q8H PRN #20 odt PRN Reason: Nausea/Vomiting Instructions: Gastritis Forms: [employer] (Pashto) Print Language: WELSH
[2018-01-31] MEDS ORDERED: Alum-Mag Hydrox-Simethicone Susp (30 mL) PO STA (11:04)
[2018-01-31] MEDS ORDERED: Alum-Mag Hydrox-Simethicone Susp (30 mL) ONE (11:14)
--- NOTE | 2018-01-31 12:16 | US ---
HISTORY: Epigastric pain COMPARISON: None. TECHNIQUE: Sonographic evaluation of the right upper quadrant of the abdomen. FINDINGS: LIVER: Measures 14.2 cm in length. Patent portal vein. Portal venous flow: Hepatopetal. Unremarkable echogenicity of the liver parenchyma. No mass. No intrahepatic bile duct dilatation. GALLBLADDER: Status post cholecystectomy. No abnormality is seen in the gallbladder fossa. COMMON BILE DUCT: Measures 7.1 mm. No stones. No dilatation. PANCREAS: Unremarkable as visualized. No mass. No ductal dilatation. RIGHT KIDNEY: Measures 4.7 x 11.2 cm in length. Normal echogenicity. No calculus, mass, or hydronephrosis. AORTA: No aneurysmal dilatation. IVC: Unremarkable. OTHER FINDINGS: None . IMPRESSION: No significant or acute findings to account for/ related to the clinical presentation.
[2018-01-31 14:37] VITALS: BP 125/80; PULSE 75; RESP 16; O2SAT 99
--- NOTE | 2018-02-03 12:13 | CARD ---
APPROVED REPORT EKG Measurement Heart [id number] <Conclusion> Normal sinus rhythm Normal ECG
== END 2018-01-31 14:39 | disposition home or self-care (01) ==
LOC: H.ER 08:29
DX: K29.70 Gastritis, unspecified, without bleeding (principal); E78.00 Pure hypercholesterolemia, unspecified; F41.9 Anxiety disorder, unspecified; I10 Essential (primary) hypertension; J45.909 Unspecified asthma, uncomplicated; Z79.82 Long term (current) use of aspirin
CPT/HCPCS: 71046; 76705; 80053; 81003; 83690; 85025; 85610; 85730; 96374; 96375; 99283; J2270; J2765; J7040

== ENCOUNTER 2018-03-01 21:01 | Emergency (ER) | payer MEDICAID, MEDICARE ==
[2018-03-01 21:05] VITALS: TEMP 97.7; O2SAT 100
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
[2018-03-01 22:27] VITALS: BP 136/90; PULSE 84; RESP 18
== END 2018-03-01 21:54 | disposition home or self-care (01) ==
LOC: H.ER 21:01
DX: F41.9 Anxiety disorder, unspecified (principal); E78.00 Pure hypercholesterolemia, unspecified; I10 Essential (primary) hypertension; J45.909 Unspecified asthma, uncomplicated; Z79.82 Long term (current) use of aspirin